=== PATIENT | male | born 1990 | race Caucasian/White ===

== ENCOUNTER 2016-06-23 09:28 | Emergency (ER) | payer OTHER ==
[~2016-06-23] VITALS: Ht 195.6 cm; Wt 98.0 kg
[2016-06-23 09:30] VITALS: BP 138/75; PULSE 93; RESP 16; TEMP 98.1; O2SAT 99
--- NOTE | 2016-06-23 10:52 | PD ---
HPI Chief Complaint: Laceration/Skin Injury Time Seen by Provider: 10:52 Travel History International Travel<30 days: No Contact w/Intl Traveler<30days: No Traveled to known affect area: No History of Present Illness HPI 26-year-old male presents to the emergency department for evaluation of chin laceration and chest wall pain status post trip and fall. The patient states that last night he was drinking alcohol and walked through his living room accidentally tripping and falling forward hitting his chest on the bench and his chin on the table. States that he did lose consciousness for a few minutes. This was not a witnessed fall. He denies any headache, lightheadedness, dizziness, nausea, vomiting, numbness or tingling, weakness, neck pain, back pain, shortness of breath, difficulty breathing. Last tetanus vaccination was 2015. No other complaints. PFSH Past Medical History Arthritis: No Asthma: No Heart Rhythm Problems: No Cardiovascular Problems: No High Cholesterol: No Chest Pain: No Congestive Heart Failure: No COPD: No Cerebrovascular Accident: No Diminished Hearing: No Gastrointestinal Disorders: No GERD: No Genitourinary: No Headaches: No Hepatitis: No Hiatal Hernia: No Hypertension: No Kidney Stones: No Musculoskeletal: No Neurologic: No Reproductive: No Respiratory: No Migraines: No Myocardial Infarction: No Renal Failure: No Seizures: Yes Sleep Apnea: No Ulcer: No Past Surgical History Abdominal Surgery: Yes (UMBILICAL) Appendectomy: No Cardiac Surgery: No Cholecystectomy: No Ear Surgery: No Endocrine Surgery: No Eye Surgery: No Genitourinary Surgery: No Gynecologic Surgery: No Oral Surgery: Yes (WISDOM TEETH REMOVED.ALL 4) Thoracic Surgery: No Other Surgery: Yes (UMBILICAL PILONIDAL CYST SURGERY) Social History Alcohol Use: Yes Tobacco Use: Yes Substance Use: Yes (MARIJUANA) Allergies-Medications (Allergen,Severity, Reaction): Coded Allergies: Penicillin (Verified Allergy, Mild, RASH, 06/23/16) Reported Meds & Prescriptions Reported Meds & Active Scripts Active Naproxen 500 Mg Tab 500 Mg PO BID 7 Days Review of Systems Except as stated in HPI: all other systems reviewed are Neg Physical Exam Narrative GENERAL: Well-nourished and well-developed pleasant patient in no acute distress. SKIN: 2.5 cm linear laceration underneath the chin HEAD: Normocephalic and atraumatic. No bony point tenderness or crepitus noted throughout the scalp and facial bones. EYES: No scleral icterus, injection, or drainage. PERRLA. EOMI. No hyphema present. ENT: No septal hematoma or hemotympanum noted. Oropharynx is clear and the airway is patent. NECK: Supple and the trachea is midline. No obvious deformities, crepitus, or midline tenderness noted. CARDIOVASCULAR: Regular rate and rhythm. RESPIRATORY: Breath sounds are equal bilaterally with no accessory muscle use, wheezing, rhonchi, or crackles. Tenderness to palpation of anterior chest wall , no obvious deformities or step-offs noted. GASTROINTESTINAL: Abdomen is soft, non-tender, and nondistended. MUSCULOSKELETAL: No obvious deformities, swelling, cyanosis, or ecchymosis is present throughout the upper and lower extremities. Patient has full range of motion without any signs of neurovascular compromise. Strength 5/5 upper and lower extremities and equal bilaterally. BACK: Nontender without any obvious deformities, bony point tenderness, or crepitus noted throughout the thoracic and lumbar vertebrae. NEUROLOGICAL: Awake, alert, and oriented. Normal speech and gait. Cranial nerves are grossly intact. Data Data Last Documented VS Vital Signs Date Time Temp Pulse Resp B/P Pulse Ox O2 Delivery O2 Flow Rate FiO2 06/23/16 09:30 98.1 93 16 138/[address] Brain W/O Iv Contrast(Rout) (06/23/16 10:50) Chest, Pa & Lat (06/23/16 10:50) MDM Medical Decision Making Medical Screen Exam Complete: Yes Emergency Medical Condition: Yes Differential Diagnosis Contusion versus fracture versus laceration versus superficial versus deep versus minor head injury Narrative Course 26-year-old male presents to the emergency department for evaluation of chin laceration status post fall last night. Patient is afebrile, vital signs are stable. He is reporting that he fell and hit his chin on the table and lost consciousness for a few minutes. No focal neurologic deficits. Head CT is negative. Chest x-ray is negative. Laceration repairs performed, see procedure narrative for further details. Discussed supportive care and when to return to the emergency Department. Advised follow-up with his PCP. Patient verbalizes understanding and agreement with treatment plan. Procedures Procedure Narrative LACERATION LOCATION: chin LENGTH: 2.5 cm NUMBER OF STITCHES/DAIANA: 6 sutures REPAIR: The area of the laceration was prepped with Betadine and sterilely draped. The laceration was infiltrated with 1% lidocaine with epinephrine. The wound was copiously irrigated and explored without evidence of foreign body , tendon injury or neurovascular injury. The wound was closed using 4. 0 Ethilon. This was a single layer repair. Antibiotic ointment and a sterile dressing was applied. The patient was advised to keep the dressing clean and dry. Patient tolerated the procedure well. Diagnosis Primary Impression: Chin laceration Qualified Code: S01.81XA - Chin laceration, initial encounter Additional Impressions: Chest wall contusion Qualified Code: S20.219A - Chest wall contusion, unspecified laterality, initial encounter Fall Qualified Code: W19.XXXA - Fall, initial encounter Referrals: Primary Care Physician Patient Instructions: Chest Wall Pain (ED), General Instructions, Laceration ( ED) Additional Instructions: Keep wound clean and dry. Wash gently with soap and water. Apply topical anabolic limited twice daily. Have sutures removed in 5 days. Follow-up with your Primary Care Physician. Return to the ED for any acute worsening of symptoms. Med/Other Pt SpecificInfo: Prescription(s) given Scripts Naproxen 500 Mg [id number] Mg PO BID 7 Days Ref 0 Prov:Mauro Medina MD 06/23/16 Disposition: 01 DISCHARGE HOME Condition: Stable Emily Becerra Jun 23, 2016 10:52
--- NOTE | 2016-06-23 11:25 | RADRPT ---
EXAM DATE/TIME: 06/23/2016 11:13 [facility] COMPARISON: No previous studies available for comparison. INDICATIONS : Chest pain post fall. MEDICAL HISTORY : None. SURGICAL HISTORY : None. ENCOUNTER: Initial ACUITY: 1 day PAIN SCORE: 7/10 LOCATION: Bilateral chest FINDINGS: PA and lateral views of the chest demonstrate the lungs to be symmetrically aerated without evidence of mass, infiltrate or effusion. The cardiomediastinal contours are unremarkable. Osseous structure s are intact. CONCLUSION: No acute disease. Lev Nuñez MD FACR on June 23, 2016 at 11:23 Board Certified Radiologist. This report was verified electronically.
--- NOTE | 2016-06-23 11:38 | RADRPT ---
EXAM DATE/TIME: 06/23/2016 11:14 [facility] COMPARISON: CT BRAIN W/O CONTRAST, October 06, 2008, 13:29. INDICATIONS : Trip and fall, laceration to chin, headache. RADIATION DOSE: 56.35 CTDIvol (mGy) MEDICAL HISTORY : None SURGICAL HISTORY : None. ENCOUNTER: Initial ACUITY: 1 day PAIN SCALE: 1/10 LOCATION: cranial TECHNIQUE: Multiple contiguous axial images were obtained of the head. Using automated exposure control and adjustment of the mA and/or kV according to patient size, radiation dose was kept as low as reasonably achievable to obtain optimal diagnostic quality images. FINDINGS: CEREBRUM: The ventricles are normal for age. No evidence of midline shift, mass lesion, hemorrha ge or acute infarction. No extra-axial fluid collections are seen. POSTERIOR FOSSA: The cerebellum and brainstem are intact. The 4th ventricle is midline. The cer ebellopontine angle is unremarkable. EXTRACRANIAL: The visualized portion of the orbits is intact. SKULL: The calvaria is intact. No evidence of skull fracture. CONCLUSION: Negative for acute process. Lev Nuñez MD FACR on June 23, 2016 at 11:36 Board Certified Radiologist. This report was verified electronically.
[2016-06-23] MEDS ORDERED: NAPR500T PO (12:08)
== END 2016-06-23 12:23 | disposition home or self-care (01) ==
LOC: NEPB 09:28
DX: S01.81XA Laceration without foreign body of other part of head, initial encounter (principal); S20.219A Contusion of unspecified front wall of thorax, initial encounter; Z72.0 Tobacco use; Z86.69 Personal history of other diseases of the nervous system and sense organs; W01.190A Fall on same level from slipping, tripping and stumbling with subsequent striking against furniture, initial encounter; Y92.008 Other place in unspecified non-institutional (private) residence as the place of occurrence of the external cause
CPT/HCPCS: 12011; 70450; 71020

== ENCOUNTER → 2017-03-11 | Outpatient (CLI) | payer OTHER ==
--- NOTE | 2017-03-11 12:25 | ECHRPT ---
Indication: murmur CONCLUSIONS Normal left ventricular size. Wall thickness is normal. The left ventricular systolic function is mildly reduced with an estimated ejection fraction in the range of 50%. The right ventricular systoilc function is mildly decreased. The left atrial size is mildly dilated. Trace mitral valve regurgitation. BP: / HR: Rhythm: MEASUREMENTS (Male / Female) Normal Values Technical Quality: 2D ECHO LV Diastolic Diameter PLAX 5.8 cm 4.2 - 5.9 / 3.9 - 5.3 cm LV Systolic Diameter PLAX 4.7 cm IVS Diastolic Thickness 1.3 cm 0.6 - 1.0 / 0.6 - 0.9 cm LVPW Diastolic Thickness 0.9 cm 0.6 - 1.0 / 0.6 - 0.9 cm LV Relative Wall Thickness 0.4 RV Internal Dim ED PLAX 2.0 cm LA Systolic Diameter LX 4.4 cm 3.0 - 4.0 / 2.7 - 3.8 cm M-MODE Aortic Root Diameter MM 3.7 cm AV Cusp Separation MM 2.7 cm DOPPLER Mitral E Point Velocity 86.4 cm/s Mitral A Point Velocity 54.3 cm/s Mitral E to A Ratio 1.6 TR Peak Velocity 262.0 cm/s TR Peak Gradient 27.5 mmHg Right Atrial Pressure 10.0 mmHg Pulmonary Artery Systolic Pressu 37.5 mmHg Right Ventricular Systolic Press 37.5 mmHg FINDINGS LEFT VENTRICLE Normal left ventricular size. Wall thickness is normal. The left ventricular systolic function is mildly reduced with an estimated ejection fraction in the range of 45- 50%. RIGHT VENTRICLE The right ventricular systoilc function is mildly decreased. LEFT ATRIUM The left atrial size is mildly dilated. RIGHT ATRIUM The right atrial size is normal. ATRIAL SEPTUM Normal atrial septal thickness without atrial level shunting by limited color doppler interrogation. AORTA The aortic root and proximal ascending aorta are normal in size on limited imaging. MITRAL VALVE Trace mitral valve regurgitation. AORTIC VALVE Trileaflet aortic valve. No aortic valve stenosis or regurgitation. TRICUSPID VALVE Structurally normal tricuspid valve. No tricuspid valve stenosis or regurgitation. PULMONARY VALVE No pulmonary valve regurgitation or stenosis. VESSELS The inferior vena cava is normal in size. PERICARDIUM No pericardial effusion. Ranjith Arreguin MD (Electronically Signed) Final Date:11 March 2017 12:24
== END ==
LOC: HECH 08:52
PROVIDERS: ATTEND Family Medicine
DX: R01.1 Cardiac murmur, unspecified (principal)
CPT/HCPCS: 93306

== ENCOUNTER 2017-03-31 10:26 | Emergency (ER) | payer OTHER ==
[~2017-03-31] VITALS: Ht 195.6 cm; Wt 102.0 kg
[~2017-03-31 10:26] MED LIST: ZYVO600T PO
[2017-03-31 10:36] VITALS: BP 158/81; PULSE 103; RESP 16; TEMP 99.1; O2SAT 100
--- NOTE | 2017-03-31 10:58 | PD ---
HPI Chief Complaint: Fall Time Seen by Provider: 10:38 Travel History International Travel<30 days: No Contact w/Intl Traveler<30days: No Traveled to known affect area: No History of Present Illness HPI 27 year old male presents to ED with a 12 foot fall prior to arrival. Patient states that he was in a tree cutting limbs when he slipped and fell to the ground. He denies any LOC, dizziness, or palpitations prior to his fall but believes he may have loss consciousness after hitting the ground. Patient does not remember how he landed but remembers hitting his right knee on a branch during the fall as well as hitting his head. Knee pain is 6/10. Prior to going in the tree, patient drank a bottle of Whiskey. He denies headache, shortness of breach, neck, back, pelvic, or abdominal pain. Last tetanus shot 1 month ago. Modifying Factors: None Associated Signs & Symptoms: Fall from a tree, 12 foot fall, right knee injury, head injury with loss of consciousness Risk Factors: None PFSH Past Medical History Arthritis: No Asthma: No Autoimmune Disease: No Anxiety: No Depression: No Heart Rhythm Problems: No Cancer: No Cardiovascular Problems: No High Cholesterol: No Chest Pain: No Congestive Heart Failure: No COPD: No Cerebrovascular Accident: No Diabetes: No Diminished Hearing: No Endocrine: No Gastrointestinal Disorders: No GERD: No Genitourinary: No Headaches: No Hepatitis: No Hiatal Hernia: No Heparin Induced Thrombocytopen: No Hypertension: No Immune Disorder: No Implanted Vascular Access Dvce: No Kidney Stones: No Musculoskeletal: No Neurologic: No Psychiatric: No Reproductive: No Respiratory: No Migraines: No Myocardial Infarction: No Renal Failure: No Seizures: Yes (LAST EPISODE 2007) Sickle Cell Disease: No Sleep Apnea: No Thyroid Disease: No Ulcer: No Past Surgical History Abdominal Surgery: Yes AICD: No Appendectomy: No Arteriovenous Shunt: No Cardiac Surgery: No Cholecystectomy: No Ear Surgery: No Endocrine Surgery: No Eye Surgery: No Genitourinary Surgery: No Gynecologic Surgery: No Insulin Pump: No Joint Replacement: No Neurologic Surgery: No Oral Surgery: No Pacemaker: No Thoracic Surgery: No Other Surgery: Yes (UMBICAL HERNIA REPAIR, PILONIDAL CYST, BILATERAL HAND SURGERY) Social History Alcohol Use: Yes Tobacco Use: Yes Substance Use: Yes (2007) Allergies-Medications (Allergen,Severity, Reaction): Coded Allergies: penicillin G (Unverified Allergy, Mild, RASH, 02/17/17) Penicillins (Verified Allergy, Unknown, 03/25/17) Reported Meds & Prescriptions Reported Meds & Active Scripts Active Zyvox (Linezolid) 600 Mg Tab 600 Mg PO Q12H 14 Days Review of Systems Except as stated in HPI: all other systems reviewed are Neg Physical Exam Narrative GENERAL: Well- developed, well- nourished young white male patient currently in mild distress. Awake. Alert. Oriented 3. Answering questions appropriately. SKIN: Warm and dry. HEAD: Atraumatic. Normocephalic. EYES: Pupils equal and round. Periorbital hematoma. No scleral icterus. No injection or drainage. Extraocular movements intact ENT: No nasal bleeding or discharge. Mucous membranes pink and moist. No hemotympanum. No coles sign. NECK: Trachea midline. No JVD. In c-collar. CARDIOVASCULAR: Regular rate and rhythm. RESPIRATORY: No accessory muscle use. Clear to auscultation. Breath sounds equal bilaterally. GASTROINTESTINAL: Abdomen soft, non-tender, nondistended. Hepatic and splenic margins not palpable. MUSCULOSKELETAL: Extremities without clubbing, cyanosis, or edema. 2.5cm laceration on right knee. No midline tenderness over spinous processes. No pelvic or heel pain. BACK: No CVA tenderness. No rash. No point tenderness on palpation of the spine. NEUROLOGICAL: Awake and alert. No obvious cranial nerve deficits. Motor grossly within normal limits. Five out of 5 muscle strength in the arms and legs. Normal speech. PSYCHIATRIC: Appropriate mood and affect; insight and judgment normal. Data Data Last Documented VS Vital Signs Date Time Temp Pulse Resp B/P (MAP) Pulse Ox O2 Delivery O2 Flow Rate FiO2 03/31/17 12:09 88 16 139/75 (96) 100 Room Air 03/31/17 10:[address] Brain W/O Iv Contrast(Rout) (03/31/17 10:31) Ct Cerv Spine W/O Contrast (03/31/17 10:31) Complete Blood Count With Diff (03/31/17 10:39) Comprehensive Metabolic Panel (03/31/17 10:39) Alcohol (Ethanol) (03/31/17 10:39) Knee, Complete (4vws) (03/31/17 10:39) Ct Facial Bones W/O Iv Cont (03/31/17 10:43) Wound Care (03/31/17 11:36) Lidocaine 1% Inj (50 Ml) (Xylocaine 1% I (03/31/17 11:45) Collar [place] (03/31/17 ) Ed Discharge Order (03/31/17 12:30) Labs Laboratory Tests Test 03/31/17 10:45 White Blood Count 15.5 TH/MM3 Red Blood Count 4.98 MIL/MM3 Hemoglobin 13.5 GM/DL Hematocrit 41.7 % Mean Corpuscular Volume 83.8 FL Mean Corpuscular Hemoglobin 27.1 PG Mean Corpuscular Hemoglobin Concent 32.3 % Red Cell Distribution Width 14.8 % Platelet Count 256 TH/MM3 Mean Platelet Volume 7.7 FL Neutrophils (%) (Auto) 69.0 % Lymphocytes (%) (Auto) 21.0 % Monocytes (%) (Auto) 9.3 % Eosinophils (%) (Auto) 0.0 % Basophils (%) (Auto) 0.7 % Neutrophils # (Auto) 10.7 TH/MM3 Lymphocytes # (Auto) 3.3 TH/MM3 Monocytes # (Auto) 1.4 TH/MM3 Eosinophils # (Auto) 0.0 TH/MM3 Basophils # (Auto) 0.1 TH/MM3 CBC Comment DIFF FINAL Differential Comment Blood Urea Nitrogen 19 MG/DL Creatinine 0.99 MG/DL Random Glucose 90 MG/DL Total Protein 8.4 GM/DL Albumin 4.4 GM/DL Calcium Level 8.6 MG/DL Alkaline Phosphatase 67 U/L Aspartate Amino Transf (AST/SGOT) 54 U/L Alanine Aminotransferase (ALT/SGPT) 59 U/L Total Bilirubin 1.6 MG/DL Sodium Level 136 MEQ/L Potassium Level 4.2 MEQ/L Chloride Level 104 MEQ/L Carbon Dioxide Level 22.5 MEQ/L Anion Gap 10 MEQ/L Estimat Glomerular Filtration Rate 91 ML/MIN Ethyl Alcohol Level LESS THAN 3 MG/DL MDM Medical Decision Making Medical Screen Exam Complete: Yes Emergency Medical Condition: Yes Medical Record Reviewed: Yes Interpretation(s) Laboratory Tests Test 03/31/17 10:45 White Blood Count 15.5 TH/MM3 (4.0-11.0) Monocytes (%) (Auto) 9.3 % (0.0-8.0) Neutrophils # (Auto) 10.7 TH/MM3 (1.8-7.7) Monocytes # (Auto) 1.4 TH/MM3 (0-0.9) Blood Urea Nitrogen 19 MG/DL (7-18) Total Protein 8.4 GM/DL (6.4-8.2) Aspartate Amino Transf (AST/SGOT) 54 U/L (15-37) Total Bilirubin 1.6 MG/DL (0.2-1.0) Last [address] 03/31/17 1043 Signed Impressions: Service Date/Time: March 11:14 - CONCLUSION: No evidence of facial fracture Joaquín Bradshaw MD Knee X-Ray 03/31/17 1039 Signed Impressions: Service Date/Time: March 10:46 - CONCLUSION: No acute bony injury Joaquín Bradshaw MD Head CT 03/31/17 1031 Signed Impressions: Service Date/Time: March 11:14 - CONCLUSION: Normal examination. Joaquín Bradshaw MD Cervical Spine CT 03/31/17 1031 Signed Impressions: Service Date/Time: March 11:14 - CONCLUSION: No acute cervical spine abnormality is identified. Joaquín Sanchez MD Differential Diagnosis Concussion versus intracranial injuries versus skull fractures versus contusions Narrative Course CAT scans not show any signs of acute fractures of the skull, intracranial injuries, or C-spine injuries. X-ray of the knee was negative for any signs of acute fractures or bony injuries. Laceration at the right knee was sutured. Wound care instructions were given. Head injury instructions are given. Exam did not show any signs of other acute injuries. At this point, my plan would be to release the patient with follow-up to primary care physician. Sutures will need to be taken out in about 12 days. The plan was discussed with him and he states understanding. Diagnosis Primary Impression: Laceration of right knee Additional Impressions: Concussion Fall Disposition: 01 DISCHARGE HOME Condition: Stable SoonBebeto barillas MD Mar 31, 2017 10:58
[2017-03-31 11:01] LABS: AUTOMATED NEUTROPHIL # 10.7 TH/MM3 (1.8-7.7); BASOPHIL # 0.1 TH/MM3 (0-0.2); BASOPHIL % 0.7 % (0.0-2.0); HEMATOCRIT 41.7 % (39.0-51.0); HEMO FLAGS DIFF FINAL; LYMPHOCYTE # 3.3 TH/MM3 (1.0-4.8); MEAN CELL VOLUME 83.8 FL (80.0-100.0); MEAN CORPUSCULAR HEMOGLOBIN 27.1 PG (27.0-34.0); MEAN CORPUSCULAR HGB CONC 32.3 % (32.0-36.0); MONO % 9.3 % (0.0-8.0); PLATELET COUNT 256 TH/MM3 (150-450); RED BLOOD COUNT 4.98 MIL/MM3 (4.50-5.90); RED CELL DISTRIBUTION WIDTH 14.8 % (11.6-17.2); WHITE BLOOD COUNT 15.5 TH/MM3 (4.0-11.0)
--- NOTE | 2017-03-31 11:01 | RADRPT ---
EXAM DATE/TIME: 03/31/2017 10:46 [facility] COMPARISON: No previous studies available for comparison. INDICATIONS : Right knee pain with laceration, fell MEDICAL HISTORY : Seizures. SURGICAL HISTORY : None. ENCOUNTER: Initial ACUITY: 1 day PAIN SCORE: 8/10 LOCATION: Right Knee FINDINGS: There is prepatellar and infrapatellar soft tissue swelling. No evidence of underlying fracture or di slocation. No joint effusion is identified. Mineralization is normal. No arthritic findings are prese nt. CONCLUSION: No acute bony injury Joaquín Bradshaw MD on March 31, 2017 at 10:59 Board Certified Radiologist. This report was verified electronically.
[2017-03-31 11:28] LABS: ALT (GPT) 59 U/L (12-78); ANION GAP 10 MEQ/L (5-15); AST (GOT) 54 U/L (15-37); BICARBONATE 22.5 MEQ/L (21.0-32.0); BLOOD UREA NITROGEN 19 MG/DL (7-18); CHLORIDE 104 MEQ/L (98-107); GLOMERULAR FILTRATION RATE 91 ML/MIN (>89); POTASSIUM 4.2 MEQ/L (3.5-5.1); SODIUM (NA) 136 MEQ/L (136-145)
--- NOTE | 2017-03-31 11:28 | RADRPT ---
EXAM DATE/TIME: 03/31/2017 11:14 [facility] COMPARISON: CT BRAIN W/O CONTRAST, June 23, 2016, 11:14. INDICATIONS : Trauma, fall from 10 feet. RADIATION DOSE: 40.72 CTDIvol (mGy) MEDICAL HISTORY : None SURGICAL HISTORY : None. ENCOUNTER: Initial ACUITY: 1 day PAIN SCALE: 5/10 LOCATION: cranial TECHNIQUE: Multiple contiguous axial images were obtained of the head. Using automated exposure control and adj ustment of the mA and/or kV according to patient size, radiation dose was kept as low as reasonably a chievable to obtain optimal diagnostic quality images. DICOM format image data is available electro nically for review and comparison. FINDINGS: CEREBRUM: The ventricles are normal for age. No evidence of midline shift, mass lesion, hemorrhage or acute in farction. No extra-axial fluid collections are seen. POSTERIOR FOSSA: The cerebellum and brainstem are intact. The 4th ventricle is midline. The cerebellopontine angle i s unremarkable. EXTRACRANIAL: The visualized portion of the orbits is intact. SKULL: The calvaria is intact. No evidence of skull fracture. CONCLUSION: Normal examination. Joaquín Bradshaw MD on March 31, 2017 at 11:24 Board Certified Radiologist. This report was verified electronically.
[2017-03-31 11:30] LABS: ALKALINE PHOSPHATASE 67 U/L (45-117); TOTAL BILIRUBIN ADULT 1.6 MG/DL (0.2-1.0)
--- NOTE | 2017-03-31 11:36 | RADRPT ---
EXAM DATE/TIME: 03/31/2017 11:14 [facility] COMPARISON: No previous studies available for comparison. INDICATIONS : Trauma, fall from 10 feet. RADIATION DOSE: 63.98 CTDIvol (mGy) MEDICAL HISTORY : None SURGICAL HISTORY : None. ENCOUNTER: Initial ACUITY: 1 day PAIN SCORE: 5/10 LOCATION: facial TECHNIQUE: Volumetric scanning of the facial bones was performed. Using automated exposure control and adjustme nt of the mA and/or kV according to patient size, radiation dose was kept as low as reasonably achiev able to obtain optimal diagnostic quality images. DICOM format image data is available electronicall y for review and comparison. FINDINGS: ORBITS: The orbital and infraorbital osseous structures are intact. The retroconal structures have a normal configuration. No radiopaque foreign bodies are seen. NASAL BONE: The nasal bone and maxillary spine are intact ZYGOMATIC ARCHES: Symmetric without evidence of fracture. SINUSES: The maxillary, ethmoid and frontal sinuses are intact. No air-fluid levels seen. NASAL CAVITY: The nasal septum is intact and midline. The lacrimal ducts are intact. SOFT TISSUES: No radiopaque foreign bodies seen. No soft-tissue swelling is seen. INTRACRANIAL: No intracranial air seen. CRIBIFORM PLATE: Grossly intact. CONCLUSION: No evidence of facial fracture Joaquín Bradshaw MD on March 31, 2017 at 11:33 Board Certified Radiologist. This report was verified electronically.
[2017-03-31 11:41] LABS: ALCOHOL LESS THAN 3 MG/DL (0-5)
--- NOTE | 2017-03-31 11:43 | RADRPT ---
EXAM DATE/TIME: 03/31/2017 11:14 [facility] COMPARISON: No previous studies available for comparison. INDICATIONS : Trauma, fall from 10 feet. RADIATION DOSE: 19.10 CTDIvol (mGy) MEDICAL HISTORY : None SURGICAL HISTORY : None. ENCOUNTER: Initial ACUITY: 1 day PAIN SCALE: 5/10 LOCATION: neck TECHNIQUE: Volumetric scanning of the cervical spine was performed. Multiplanar reconstructions in the sagittal, coronal and oblique axial planes were performed. Using automated exposure control and adjustment o f the mA and/or kV according to patient size, radiation dose was kept as low as reasonably achievable to obtain optimal diagnostic quality images. DICOM format image data is available electronically f or review and comparison. FINDINGS: There is normal sagittal spine alignment of the cervical spine. No anterolisthesis or retrolisthesis is present. The atlantoaxial relationship is within normal limits. There is no prevertebral soft tiss ue swelling present. No fracture or dislocation is identified. No disc herniation is visualized in th e upper cervical spine. The visualized portions of the posterior fossa, paraspinous soft tissues, and upper lung zones demons trate no acute abnormality. CONCLUSION: No acute cervical spine abnormality is identified. Joaquín Sanchez MD on March 31, 2017 at 11:40 Board Certified Radiologist. This report was verified electronically.
[2017-03-31] MEDS ORDERED: LIDOCAINE HCL 1% 50 ML VIAL INFIL ONE (11:45)
[2017-03-31 12:09] VITALS: BP 139/75; PULSE 88; RESP 16; O2SAT 100
== END 2017-03-31 13:16 | disposition home or self-care (01) ==
LOC: NEPE 10:26
DX: S81.011A Laceration without foreign body, right knee, initial encounter (principal); S06.0X0A Concussion without loss of consciousness, initial encounter; R56.9 Unspecified convulsions; Z79.899 Other long term (current) drug therapy; Z88.0 Allergy status to penicillin; Z72.0 Tobacco use; W01.0XXA Fall on same level from slipping, tripping and stumbling without subsequent striking against object, initial encounter
CPT/HCPCS: 12001; 70450; 70486; 72125; 73564; 80053; 80307; 85025; 99285; L0150

== ENCOUNTER 2017-04-07 09:35 | Emergency (ER) | payer OTHER ==
[~2017-04-07] VITALS: Ht 195.6 cm; Wt 100.0 kg
[2017-04-07 09:36] VITALS: BP 154/76; PULSE 84; RESP 18; TEMP 99; O2SAT 100
[2017-04-07] MEDS ORDERED: MORPHINE SULFATE 4 MG/ML INJ IV PUSH ONE (10:00)
[2017-04-07] MEDS ORDERED: CLINDAMYCIN INJ 900 MG in SODIUM CHLORIDE 0.9% INJ 100 ML IV ONE (10:00)
[2017-04-07] MEDS ORDERED: SODIUM CHLORIDE 0.9% FLUSH 10 ML FLUSH IVF PRN (10:00)
[2017-04-07] MEDS ORDERED: ONDANSETRON HCL 4 MG/2 ML VIAL IV PUSH ONE (10:00)
--- NOTE | 2017-04-07 10:00 | PD ---
HPI . Wound infection Chief Complaint: Wound/Suture/Staple Re-Check Time Seen by Provider: 09:52 Travel History International Travel<30 days: No Contact w/Intl Traveler<30days: No History of Present Illness HPI This patient presents with a chief complaint of a wound infection. He is status post repair of a right knee laceration on 03/31. He states that he was doing well until yesterday when he started noticing pus from the wound. On awakening today, his entire right lower extremity was red and swollen. He presented here for evaluation treatment. He denies any associated fever. Pain is minimal. PFSH Past Medical History Arthritis: No Asthma: No Autoimmune Disease: No Anxiety: No Depression: No Heart Rhythm Problems: No Cancer: No Cardiovascular Problems: No High Cholesterol: No Chest Pain: No Congestive Heart Failure: No COPD: No Cerebrovascular Accident: No Diabetes: No Diminished Hearing: No Endocrine: No Gastrointestinal Disorders: No GERD: No Genitourinary: No Headaches: No Hepatitis: No Hiatal Hernia: No Heparin Induced Thrombocytopen: No Hypertension: No Immune Disorder: No Implanted Vascular Access Dvce: No Kidney Stones: No Musculoskeletal: No Neurologic: No Psychiatric: No Reproductive: No Respiratory: No Migraines: No Myocardial Infarction: No Renal Failure: No Seizures: Yes (LAST EPISODE 2007) Sickle Cell Disease: No Sleep Apnea: No Thyroid Disease: No Ulcer: No Past Surgical History Abdominal Surgery: Yes AICD: No Appendectomy: No Arteriovenous Shunt: No Cardiac Surgery: No Cholecystectomy: No Ear Surgery: No Endocrine Surgery: No Eye Surgery: No Genitourinary Surgery: No Gynecologic Surgery: No Insulin Pump: No Joint Replacement: No Neurologic Surgery: No Oral Surgery: No Pacemaker: No Thoracic Surgery: No Other Surgery: Yes (UMBICAL HERNIA REPAIR, PILONIDAL CYST, BILATERAL HAND SURGERY) Social History Alcohol Use: Yes Tobacco Use: Yes Substance Use: Yes (2007) Allergies-Medications (Allergen,Severity, Reaction): Coded Allergies: penicillin G (Unverified Allergy, Mild, RASH, 02/17/17) Penicillins (Verified Allergy, Unknown, 03/25/17) Reported Meds & Prescriptions Reported Meds & Active Scripts Active Zyvox (Linezolid) 600 Mg Tab 600 Mg PO Q12H 14 Days Review of Systems Except as stated in HPI: all other systems reviewed are Neg General / Constitutional: No: Fever, Chills Musculoskeletal: Positive: Edema Skin: Positive Change in Pigmentation, Positive Other Physical Exam Narrative GENERAL: Awake and alert and in no acute distress. SKIN: Purulent drainage from the wound on his right knee. The right leg is red , hot, swollen and tender. HEAD: Normocephalic/atraumatic. EYES: Pupils are equal. Extraocular movements are intact. NECK: Full range of motion. CARDIOVASCULAR: Regular rate and rhythm. RESPIRATORY: Nonlabored respirations. MUSCULOSKELETAL: He is able to flex and extend his right knee. NEUROLOGICAL: Nonfocal. PSYCHIATRIC: Appropriate mood and affect. Data Data Last Documented VS Vital Signs Date Time Temp Pulse Resp B/P (MAP) Pulse Ox O2 Delivery O2 Flow Rate FiO2 04/07/17 09:36 99.0 84 18 154/76 (102) 100 Room Air Orders Orders Basic Metabolic Panel (Bmp) (04/07/17 09:52) Complete Blood Count With Diff (04/07/17 09:52) Blood Culture (04/07/17 09:52) Wound Culture And Gram Stain (04/07/17 09:52) Iv Access Insert/Monitor (04/07/17 09:52) Wound Care (04/07/17 09:52) Sodium Chloride 0.9% Flush (Ns Flush) (04/07/17 10:00) Clindamycin Inj (Cleocin Inj) (04/07/17 10:00) Morphine Inj (Morphine Inj) (04/07/17 10:00) Ondansetron Inj (Zofran Inj) (04/07/17 10:00) MDM Medical Decision Making Medical Screen Exam Complete: Yes Emergency Medical Condition: Yes Differential Diagnosis My differential diagnosis includes but is not limited to localized wound infection, cellulitis, abscess Narrative Course This patient presents with a wound infection associated with a right knee laceration which occurred on 03/31. The infection started yesterday and is much worse today. The patient reports an allergy to penicillin. I have ordered wound culture, blood cultures, CBC and IV clindamycin. His pain will be treated with IV morphine and Zofran. Diagnosis Primary Impression: Cellulitis Qualified Codes: L03.115 - Cellulitis of right lower limb Lindy Kay MD Apr 07, 2017 10:00
[2017-04-07 10:56] LABS: AUTOMATED NEUTROPHIL # 5.6 TH/MM3 (1.8-7.7); BASOPHIL # 0.1 TH/MM3 (0-0.2); BASOPHIL % 0.8 % (0.0-2.0); EOSINOPHIL # 0.2 TH/MM3 (0-0.4); EOSINOPHIL % 2.2 % (0.0-4.0); HEMATOCRIT 36.7 % (39.0-51.0); HEMO FLAGS DIFF FINAL; LYMPH % 20.6 % (9.0-44.0); LYMPHOCYTE # 1.7 TH/MM3 (1.0-4.8); MEAN CELL VOLUME 82.9 FL (80.0-100.0); MEAN CORPUSCULAR HEMOGLOBIN 28.3 PG (27.0-34.0); MEAN CORPUSCULAR HGB CONC 34.1 % (32.0-36.0); MONO % 7.3 % (0.0-8.0); NEUT % 69.1 % (16.0-70.0); PLATELET COUNT 247 TH/MM3 (150-450); RED BLOOD COUNT 4.43 MIL/MM3 (4.50-5.90); RED CELL DISTRIBUTION WIDTH 14.3 % (11.6-17.2); WHITE BLOOD COUNT 8.1 TH/MM3 (4.0-11.0)
[2017-04-07 11:25] VITALS: BP 142/71; PULSE 71; RESP 17; O2SAT 100
[2017-04-07 11:30] LABS: BICARBONATE 27.2 MEQ/L (21.0-32.0); POTASSIUM 4.1 MEQ/L (3.5-5.1)
[2017-04-07 12:53] VITALS: BP 128/69; PULSE 69; RESP 17; O2SAT 100
[2017-04-07] MEDS ORDERED: CLIN300C5 PO (13:11)
[2017-04-07] MEDS ORDERED: MEDI220T PO (13:11)
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
== END 2017-04-07 13:50 | disposition home or self-care (01) ==
LOC: NEPD 09:35
DX: L03.115 Cellulitis of right lower limb (principal); A49.02 Methicillin resistant Staphylococcus aureus infection, unspecified site; Z72.0 Tobacco use; Z88.0 Allergy status to penicillin
CPT/HCPCS: 80048; 85025; 86403; 87040; 87070; 87186; 96365; 96375; 99284; J2270; J2405